=== PATIENT | female | born 1960 | race Hispanic/Latino ===

== ENCOUNTER 2023-06-26 05:33 | Day surgery (SDC) | payer BC ==
[~2023-06-26] VITALS: Ht 157.5 cm; Wt 63.9 kg
[2023-06-26] VITALS (11 sets, daily range): BP systolic 96–145; BP diastolic 40–67; PULSE 56–69; RESP 12–16
[2023-06-26] MEDS ORDERED: 0.9%NACL 1000ML 1,000 ML IV ONE ×2 (06:21)
[2023-06-26] MEDS ORDERED: PROPOFOL 10 MG/ML 20ML VIAL IV ONE (08:00)
[2023-06-26] MEDS ORDERED: LIDOCAINE PF 100MG/5ML (2%) SYRINGE 5ML ONE (08:00)
== END 2023-06-26 09:15 | disposition short-term general hospital (02) ==
LOC: DAH 05:33
PROVIDERS: ATTEND Surgery
DX: K62.0 Anal polyp (principal); K62.89 Other specified diseases of anus and rectum; K59.00 Constipation, unspecified; K64.8 Other hemorrhoids; Z79.899 Other long term (current) drug therapy; Z79.01 Long term (current) use of anticoagulants
CPT/HCPCS: 45330; J7030 ×3; J2001; J2704; A4620; A4215 ×2; A4223; A7002; A4222; A4221; A4663; A4216; A4606; J3490